=== PATIENT | male | born 1950 | race African-American/Black ===

== ENCOUNTER 2016-08-21 21:08 | Emergency (ER) | payer OTHER ==
[~2016-08-21] VITALS: Ht 175.3 cm; Wt 80.0 kg
[~2016-08-21 21:08] MED LIST: ERYT1O RIGHT EYE; HYDR-3533 PO; Z.0.NO CURRENT MEDS
[2016-08-21 21:09] VITALS: BP 148/78; PULSE 50; RESP 15; TEMP 98; O2SAT 98
[2016-08-21] MEDS ORDERED: AMOX500C PO (21:24)
[2016-08-21] MEDS ORDERED: AMOXICILLIN (TRIHYDRATE) 500 MG CAP PO ONE (21:30)
--- NOTE | 2016-08-21 21:44 | PD ---
HPI Chief Complaint: ENT Complaint Time Seen by Provider: 21:41 Travel History International Travel<30 days: No Contact w/Intl Traveler<30days: No Traveled to known affect area: No History of Present Illness HPI 66-year-old black male presents to emergency department with a three-day history of subjective fever and chills, sore throat, congestion, cough and general malaise. He denies any shortness of breath or wheezing. No nausea vomiting. No abdominal pain or diarrhea. No dysuria or frequency. He states the symptoms are moderate. Worse with swallowing. No palliative activity. PFSH Past Medical History Narrative Medical Chronic back pain Cancer: No Cardiovascular Problems: No Diminished Hearing: No Endocrine: No Gastrointestinal Disorders: No Genitourinary: No Immune Disorder: No Musculoskeletal: No Neurologic: No Respiratory: No Sickle Cell Disease: No Tetanus Vaccination: < 5 Years Past Surgical History Oral Surgery: Yes Pacemaker: No Other Surgery: No Social History Alcohol Use: Yes (OCC) Tobacco Use: No Substance Use: No Allergies-Medications (Allergen,Severity, Reaction): Coded Allergies: No Known Allergies (Verified , 08/21/16) Reported Meds & Prescriptions Reported Meds & Active Scripts Active Amoxicillin 500 Mg Cap 500 Mg PO TID Review of Systems Except as stated in HPI: all other systems reviewed are Neg Physical Exam Narrative GENERAL: Well-developed, well-nourished in no acute distress. Nontoxic appearing. HEAD: Normocephalic, atraumatic. EYES: Pupils equal round and reactive. Extraocular motions intact. No scleral icterus. No injection or drainage. ENT: TMs clear without erythema. The external auditory canals clear. Nose: clear . Posterior pharynx is pink and moist. No tonsillar edema or exudate. Uvula midline. Airway patent. NECK: Trachea midline.Supple, nontender, moves head freely. No central bony tenderness or spasm. CARDIOVASCULAR: Regular rate and rhythm without murmurs, gallops, or rubs. RESPIRATORY: Clear to auscultation. Breath sounds equal bilaterally. No wheezes , rales, or rhonchi. GASTROINTESTINAL: Abdomen soft, non-tender, nondistended. No hepato-splenomegaly , or palpable masses. No guarding. EXTREMITIES: No clubbing, cyanosis, or edema. No joint tenderness, effusion, or edema noted. BACK: Nontender without deformity or crepitance. No flank tenderness. Data Data Last Documented VS Vital Signs Date Time Temp Pulse Resp B/P Pulse Ox O2 Delivery O2 Flow Rate FiO2 08/21/16 21:09 98.0 50 15 148/78 98 Room Air Orders Amoxicillin (Trimox) (08/21/16 21:30) MDM Medical Decision Making Medical Screen Exam Complete: Yes Emergency Medical Condition: Yes Medical Record Reviewed: Yes Differential Diagnosis MDM: High Differential diagnoses: Strep throat, viral pharyngitis, mono Narrative Course This is pharyngitis Patient's given amoxicillin 1 g by mouth Diagnosis Primary Impression: Acute pharyngitis Qualified Code: J02.9 - Acute pharyngitis, unspecified etiology Patient Instructions: General Instructions Additional Instructions: Rest. Force fluids. Saltwater gargles. Tylenol and Advil. Chloraseptic [place] Cepastat lozenge. Amoxicillin. Follow-up with a primary care doctor in one week. Return to the ER if any problems. Med/Other Pt SpecificInfo: Prescription(s) given Scripts Amoxicillin 500 Mg Tsh015 Mg PO TID #30 CAP Prov:Sammie Prince MD 08/21/16 Disposition: 01 DISCHARGE HOME Condition: Stable Ivan Pan Aug 21, 2016 21:44
== END 2016-08-21 22:11 | disposition home or self-care (01) ==
LOC: NEPB 21:08
DX: J02.9 Acute pharyngitis, unspecified (principal); R05 Cough
CPT/HCPCS: 99283